=== PATIENT | male | born 1970 | race Caucasian/White ===

== ENCOUNTER 2018-06-04 07:29 | Outpatient (CLI) | payer OTHER ==
--- NOTE | 2018-06-04 10:39 | CT ---
CT ABDOMEN AND PELVIS WITH CONTRAST: Date: 06/04/18 HISTORY: Right upper quadrant pain. COMPARISON: None. FINDINGS: Lung bases are clear. No pericardial effusion. Prior cholecystectomy. Adrenal glands are unremarkable. Spleen and pancreas are unremarkable. Aortic contour is normal. No aneurysmal dilatation. No adenopathy. There is mild circumferential thickening of the ascending colon, best seen on coronal image 55, which does appear to have some focal fatty infiltration within the wall. Low grade diverticular disease si gmoid colon without active current inflammation. The pancreas, spleen, and liver are unremarkable. No abnormal renal enhancing mass. There are two pun ctate 2-3 mm calculi interpolar right renal collecting system. IMPRESSION: 1. Mild circumferential wall thickening of the ascending colon, which does appear to have some focal fatty infiltration. Recommend evaluation with colonoscopy as there is concern for malignancy. There is also submucosal fatty infiltration in the terminal ileum which may be sequelae of chronic inflamma tory bowel disease such as Crohn's. 2. No acute inflammatory process in the abdomen or pelvis. POS: VAL
== END 2018-06-04 07:30 | disposition home or self-care (01) ==
LOC: SCSCT 07:29
PROVIDERS: ATTEND Internal Medicine Gastroenterology
DX: R10.11 Right upper quadrant pain (principal); K63.89 Other specified diseases of intestine
CPT/HCPCS: 74177

== ENCOUNTER 2023-03-13 09:22 | Outpatient (CLI) | payer OTHER ==
[2023-03-13 10:06] LABS: #Basophils 0.1 10x3/uL (0.0-0.2); #Eosinphils 0.1 10x3/uL (0.0-0.5); #Monocytes 0.6 10x3/uL (0.0-1.1); #Neutrophils 4.2 10x3/uL (1.5-8.4); %Basophils 0.8 % (0.0-2.0); %Eosinophils 1.8 % (0.0-6.0); %Lymphocytes 20.9 % (18.0-47.0); %Monocytes 9.1 % (0.0-10.0); %Neutrophils 67.1 % (40.0-75.0); Hematocrit 42.5 % (38.8-50.0); Hemoglobin 14.3 g/dL (13.5-17.5); Mean Corpuscular HGB CONC 33.6 g/dL (32.0-36.0); Mean Corpuscular Hemoglobin 29.1 pg (27.0-33.0); Mean Corpuscular Volume 86.6 fl (81.2-95.1); Mean Platelet Volume 9.6 fl (7.4-10.4); Platelet Count 261 10x3/uL (150-450); RBC Distribution Width 12.6 % (11.5-14.5); Red Blood Cell (RBC) Count 4.91 10x6/uL (4.32-5.72); White Blood Cell (WBC) Count 6.3 10x3/uL (3.5-10.5)
[2023-03-13 10:33] LABS: Anion Gap 15 mmol/L (10-20); BUN (Urea Nitrogen) 19 mg/dL (8.4-25.7); Calc. Creatinine Clearance 0 mL/min (70-130); Calcium 9.4 mg/dL (7.8-10.44); Carbon Dioxide 25 mmol/L (22-29); Chloride 105 mmol/L (98-107); Estimated GFR 92; Glucose 119 mg/dL (70-105); Potassium 4.5 mmol/L (3.5-5.1); Sodium 140 mmol/L (136-145)
== END 2023-03-13 09:23 | disposition home or self-care (01) ==
LOC: LABBT 09:22
PROVIDERS: ATTEND Orthopaedic Surgery
DX: Z01.818 Encounter for other preprocedural examination (principal); M19.011 Primary osteoarthritis, right shoulder
CPT/HCPCS: 80048; 85025; 93005; 93010

== ENCOUNTER 2023-05-21 08:58 | Outpatient (CLI) | payer OTHER ==
[2023-05-21 09:47] LABS: #Eosinphils 0.1 10x3/uL (0.0-0.5); #Monocytes 0.5 10x3/uL (0.0-1.1); #Neutrophils 4.3 10x3/uL (1.5-8.4); %Basophils 0.6 % (0.0-2.0); %Eosinophils 1.6 % (0.0-6.0); %Lymphocytes 18.8 % (18.0-47.0); %Monocytes 8.6 % (0.0-10.0); %Neutrophils 69.9 % (40.0-75.0); Hematocrit 42.2 % (38.8-50.0); Hemoglobin 14.2 g/dL (13.5-17.5); Mean Corpuscular HGB CONC 33.6 g/dL (32.0-36.0); Mean Corpuscular Hemoglobin 28.3 pg (27.0-33.0); Mean Corpuscular Volume 84.1 fl (81.2-95.1); Mean Platelet Volume 9.7 fl (7.4-10.4); Platelet Count 262 10x3/uL (150-450); Red Blood Cell (RBC) Count 5.02 10x6/uL (4.32-5.72); White Blood Cell (WBC) Count 6.2 10x3/uL (3.5-10.5)
[2023-05-21 10:28] LABS: Anion Gap 13 mmol/L (10-20); BUN (Urea Nitrogen) 16 mg/dL (8.4-25.7); Calc. Creatinine Clearance 0 mL/min (70-130); Calcium 9.6 mg/dL (7.8-10.44); Carbon Dioxide 27 mmol/L (22-29); Chloride 106 mmol/L (98-107); Estimated GFR 88; Glucose 147 mg/dL (70-105); Potassium 4.2 mmol/L (3.5-5.1); Sodium 142 mmol/L (136-145)
== END 2023-05-21 08:59 | disposition home or self-care (01) ==
LOC: LABBT 08:58
PROVIDERS: ATTEND Orthopaedic Surgery
DX: Z01.818 Encounter for other preprocedural examination (principal); M19.011 Primary osteoarthritis, right shoulder
CPT/HCPCS: 80048; 85025; 87081; 93005; 93010

== ENCOUNTER 2023-05-23 06:56 | Observation (INO) | payer OTHER ==
[2023-05-21 09:22] VITALS: BMI 32.3
[2023-05-23] MEDS ORDERED: Scopolamine 1 mg/72 hour Patch ONE (07:53)
[2023-05-23] MEDS ORDERED: Vancomycin (BATCH) 1.5 GM/300 ML BAG ONE (07:53)
[2023-05-23] MEDS ORDERED: Tranexamic Acid 1,000 MG/10 ML VIAL ONE (07:55)
[2023-05-23] MEDS ORDERED: Sodium Chloride 0.9% 100 ML ONE ×2 (07:56→09:11)
[2023-05-23] MEDS ORDERED: fentaNYL 50 mcg/mL 1 mL Vial ONE ×4 (08:05→14:55)
[2023-05-23] MEDS ORDERED: Lidocaine 1% (PF) 30 ML VIAL ONE (08:06)
[2023-05-23] MEDS ORDERED: Midazolam HCl 2 mg/2 ml Vial ONE ×2 (08:06→13:53)
[2023-05-23] MEDS ORDERED: Promethazine HCl 25 MG/ML VIAL IM PRN (09:00)
[2023-05-23] MEDS ORDERED: Ondansetron PF 4 MG/2 ML Vial IVP PRN (09:00)
[2023-05-23] MEDS ORDERED: HYDROcodone/Acetaminophen 10/325 mg Tablet PO PRN (09:00)
[2023-05-23] MEDS ORDERED: Zolpidem Tartrate 5 MG TAB PO PRN (09:00)
[2023-05-23] MEDS ORDERED: traMADol HCl 50 MG TAB PO PRN ×2 (09:00)
[2023-05-23] MEDS ORDERED: Ropivacaine 0.2% 550 ML 550 ML NERVE BLCK SCH (09:00)
[2023-05-23] MEDS ORDERED: fentaNYL 50 mcg/mL 1 mL Vial SLOW IVP PRN (09:03)
[2023-05-23] MEDS ORDERED: CEFAZOLIN 2 GM VIAL ONE (09:11)
[2023-05-23] MEDS ORDERED: PHENYLEPHRINE-NS 100 MCG/ML 10 ML SYRINGE ONE (09:14)
[2023-05-23] MEDS ORDERED: Rocuronium Bromide 10 MG/ML (10ML VIAL) ONE ×2 (09:14→10:15)
[2023-05-23] MEDS ORDERED: Ondansetron PF 4 MG/2 ML Vial ONE ×2 (09:14→10:15)
[2023-05-23] MEDS ORDERED: fentaNYL PF 100 MCG/2 ML SYRINGE ONE ×2 (09:14→13:26)
[2023-05-23] MEDS ORDERED: Lidocaine 1% PF 5 ML VIAL ONE ×2 (09:14→10:15)
[2023-05-23] MEDS ORDERED: Dexamethasone 20 MG/5 ML VIAL ONE ×2 (09:14→10:15)
[2023-05-23] MEDS ORDERED: PROPOFOL 20 ML ONE ×2 (09:14→12:24)
[2023-05-23] MEDS ORDERED: PROPOFOL 200 MG/20 ML VIAL ONE (10:15)
[2023-05-23] MEDS ORDERED: Bupivacaine HCl 0.5%/Epinephrine 1:200,000/PF 30 ml Vial ONE (10:15)
[2023-05-23] MEDS ORDERED: Ketorolac Tromethamine 30 MG/ML VIAL ONE ×2 (10:15→12:50)
[2023-05-23] MEDS ORDERED: SUGAMMADEX SODIUM 200 MG/2 ML VIAL ONE (12:26)
[2023-05-23] MEDS ORDERED: Milk Of Magnesia 30 ML UDCUP PO PRN (13:21)
[2023-05-23] MEDS ORDERED: Ondansetron ODT 4 MG TAB PO PRN (13:21)
[2023-05-23] MEDS ORDERED: Acetaminophen 325 MG TAB PO PRN (13:21)
[2023-05-23] MEDS ORDERED: Bisacodyl 10 MG SUPP PR PRN (13:21)
[2023-05-23] MEDS ORDERED: diphenhydrAMINE 50 MG CAP PO PRN (13:21)
[2023-05-23] MEDS: Ketorolac Tromethamine 30 MG/ML VIAL IVP SCH ×2 (16:06→17:48)
[2023-05-23] MEDS: Dextrose 5 %-0.45 % NaCl 1,000 ML IV SCH (16:36)
[2023-05-23] MEDS: CEFAZOLIN 2 GM in Sodium Chloride 0.9% 100 ML IVPB SCH (17:47)
[2023-05-23] MEDS: HYDROcodone/Acetaminophen 10/325 mg Tablet PO PRN (20:27)
[2023-05-24] MEDS: Ketorolac Tromethamine 30 MG/ML VIAL IVP SCH ×3 (01:00→12:09)
[2023-05-24] MEDS: CEFAZOLIN 2 GM in Sodium Chloride 0.9% 100 ML IVPB SCH (01:03)
[2023-05-24] MEDS: Dextrose 5 %-0.45 % NaCl 1,000 ML IV SCH (05:25)
[2023-05-24] MEDS: HYDROcodone/Acetaminophen 10/325 mg Tablet PO PRN (12:10)
[2023-05-24 12:39] VITALS: BP 153/83; TEMP 98.7
== END 2023-05-24 12:40 | disposition home or self-care (01) ==
LOC: SDC 06:56 → SJJU 16:33
PROVIDERS: ADMIT Orthopaedic Surgery; ATTEND Orthopaedic Surgery
PROC: 0RRJ0JZ Replacement of Right Shoulder Joint with Synthetic Substitute, Open Approach (ICD-10-PCS; principal; 2023-05-24)
PROC: 0LS30ZZ Reposition Right Upper Arm Tendon, Open Approach (ICD-10-PCS; 2023-05-24)
DX: M19.011 Primary osteoarthritis, right shoulder (principal); M75.22 Bicipital tendinitis, left shoulder; M19.012 Primary osteoarthritis, left shoulder; E78.5 Hyperlipidemia, unspecified; G43.909 Migraine, unspecified, not intractable, without status migrainosus; F43.10 Post-traumatic stress disorder, unspecified; E66.3 Overweight; J45.909 Unspecified asthma, uncomplicated; Z90.89 Acquired absence of other organs; Z98.890 Other specified postprocedural states; Z79.899 Other long term (current) drug therapy
CPT/HCPCS: A4306; C1713; C1776; J1100; J1885; J2001; J2250; J2405; J2704; J2795; J3010; J3370; J3490; J7042

== ENCOUNTER 2023-09-03 08:00 | Outpatient (CLI) | payer OTHER | END 2023-09-03 08:01 | disposition home or self-care (01) | LOC: ULT 08:00 | PROVIDERS: ATTEND Family Medicine | DX: K76.0 Fatty (change of) liver, not elsewhere classified (principal) | CPT/HCPCS: 76705 ==

== ENCOUNTER 2023-11-28 11:33 | Outpatient (CLI) | payer OTHER ==
[2023-11-28 13:27] LABS: Bilirubin Neg (Negative); Blood, Urine Negative (Negative); Clarity Clear (Clear); Glucose, Urine (Dipstick) Normal (Negative); Ketone, Urine Negative (Negative); Leukocyte Negative (Negative); Nitrite Negative (Negative); Protein, Urine (Dipstick) Negative (Neg-Trace); Urobilinogen Normal mg/dL (Less than 2)
[2023-11-28 13:30] LABS: Hematocrit 37.5 % (38.8-50.0); Hemoglobin 12.9 g/dL (13.5-17.5); Mean Corpuscular HGB CONC 34.4 g/dL (32.0-36.0); Mean Corpuscular Hemoglobin 29.1 pg (27.0-33.0); Mean Corpuscular Volume 84.7 fl (81.2-95.1); Mean Platelet Volume 10.4 fl (7.4-10.4); Platelet Count 261 10x3/uL (150-450); RBC Distribution Width 13.3 % (11.5-14.5); Red Blood Cell (RBC) Count 4.43 10x6/uL (4.32-5.72); White Blood Cell (WBC) Count 5.9 10x3/uL (3.5-10.5)
[2023-11-28 13:36] LABS: Anion Gap 13 mmol/L (10-20); BUN (Urea Nitrogen) 11 mg/dL (8.4-25.7); Calc. Creatinine Clearance 0 mL/min (70-130); Calcium 9.4 mg/dL (7.8-10.44); Carbon Dioxide 26 mmol/L (22-29); Chloride 104 mmol/L (98-107); Estimated GFR 104; Glucose 77 mg/dL (70-105); PTT 26.9 sec (22.0-33.0); Potassium 4.1 mmol/L (3.5-5.1); Prothrombin Time 10.5 sec (9.5-12.1); Sodium 139 mmol/L (136-145)
[2023-11-28 13:41] LABS: Bacteria/HPF None Seen HPF (None Seen); RBC/HPF None Seen HPF (0-3); Squamous Epithelial 0-3 HPF (0-3); WBC/HPF None Seen HPF (0-3)
== END 2023-11-28 11:34 | disposition home or self-care (01) ==
LOC: LABBT 11:33
PROVIDERS: ATTEND Urology
DX: Z01.818 Encounter for other preprocedural examination (principal); N20.0 Calculus of kidney
CPT/HCPCS: 80048; 81001; 85027; 85610; 85730; 87086; 93005; 93010

== ENCOUNTER 2023-12-06 11:24 | Observation (INO) | payer OTHER ==
[2023-12-06] MEDS ORDERED: fentaNYL PF 100 MCG/2 ML SYRINGE ONE ×3 (14:32→17:26)
[2023-12-06] MEDS ORDERED: Lidocaine 2% PF 5 ML VIAL ONE (14:32)
[2023-12-06] MEDS ORDERED: Scopolamine 1 mg/72 hour Patch ONE (15:36)
[2023-12-06] MEDS ORDERED: Iopamidol 30 ML ONE (15:38)
[2023-12-06] MEDS ORDERED: Ketamine In 0.9 % NaCl 50 MG/5 ML SYRINGE ONE (15:45)
[2023-12-06] MEDS ORDERED: Midazolam HCl 2 mg/2 ml Vial ONE (15:46)
[2023-12-06] MEDS ORDERED: LevoFLOXacin D5W 500 mg (100 mL) BAG ONE (15:54)
[2023-12-06] MEDS ORDERED: PROPOFOL 20 ML ONE (16:20)
[2023-12-06] MEDS ORDERED: PROPOFOL 200 MG/20 ML VIAL ONE (16:22)
[2023-12-06] MEDS ORDERED: Dexamethasone 20 MG/5 ML VIAL ONE (16:34)
[2023-12-06] MEDS ORDERED: Ondansetron PF 4 MG/2 ML Vial ONE (16:34)
[2023-12-06] MEDS ORDERED: Phenazopyridine HCl 100 MG TAB ONE (16:59)
[2023-12-06] MEDS ORDERED: Oxybutynin 5 MG TAB ONE (17:00)
[2023-12-06] MEDS ORDERED: Meperidine HCl/PF 25 MG (1 mL) VIAL ONE (17:02)
[2023-12-06] MEDS ORDERED: HYDROmorphone 0.5 MG/0.5 ML SYRINGE ONE ×3 (17:12→17:50)
[2023-12-06] MEDS ORDERED: Ketorolac Tromethamine 30 MG (1 mL) VIAL ONE ×2 (17:43→17:44)
[2023-12-06] MEDS ORDERED: fentaNYL 50 mcg/mL 1 mL Vial ONE (18:10)
[2023-12-06] MEDS ORDERED: HYDROcodone/Acetaminophen 5/325 mg Tablet ONE (18:11)
[2023-12-06] MEDS ORDERED: Oxybutynin 5 MG TAB PO PRN (19:09)
[2023-12-06] MEDS ORDERED: Hyoscyamine SL 0.125 MG TAB SL PRN (19:09)
[2023-12-06] MEDS ORDERED: Morphine 2 MG/ML VIAL SLOW IVP PRN (19:09)
[2023-12-06] MEDS ORDERED: Ketorolac Tromethamine 30 MG (1 mL) VIAL IVP PRN (19:09)
[2023-12-06] MEDS ORDERED: Mag-Al 1200 mg/1200 mg/30 ML UDCUP PO PRN (19:09)
[2023-12-06] MEDS ORDERED: Bisacodyl 10 MG SUPP PR PRN (19:09)
[2023-12-06] MEDS ORDERED: Ondansetron PF 4 MG/2 ML Vial IVP PRN (19:09)
[2023-12-06] MEDS ORDERED: hydrALAZINE 20 MG/ML VIAL SLOW IVP PRN (19:09)
[2023-12-06] MEDS ORDERED: diphenhydrAMINE 25 MG CAP PO PRN (19:09)
[2023-12-06] MEDS ORDERED: Albuterol 200 PUFF (6.7GM INHALER) INH PRN (19:11)
[2023-12-06] MEDS ORDERED: tiZANidine HCl 4 MG TAB PO PRN (19:24)
[2023-12-06 19:47] VITALS: BMI 33.2
[2023-12-06] MEDS: Rosuvastatin 20 MG TAB PO SCH (19:58)
[2023-12-06] MEDS: Docusate 100 MG CAP PO SCH (19:58)
[2023-12-06] MEDS: Morphine 4 MG/ML VIAL SLOW IVP PRN (19:58)
[2023-12-06] MEDS: DULoxetine 20 MG CAP PO SCH (19:59)
[2023-12-06] MEDS ORDERED: traMADol HCl 50 MG TAB PO PRN (20:47)
[2023-12-06] MEDS: HYDROcodone/Acetaminophen 5/325 mg Tablet PO PRN (22:10)
[2023-12-07] MEDS: Loratadine 10 MG TAB PO SCH (08:08)
[2023-12-07] MEDS: Tamsulosin HCl 0.4 MG CAP PO SCH (08:08)
[2023-12-07] MEDS: Pantoprazole DR 40 MG TAB PO SCH (08:09)
[2023-12-07] MEDS: CeleCOXIB 100 MG CAP PO SCH (08:09)
[2023-12-07 11:43] VITALS: BP 96/58; TEMP 98.2
[2023-12-07] MEDS: HYDROcodone/Acetaminophen 5/325 mg Tablet PO PRN (11:59)
== END 2023-12-07 12:17 | disposition home or self-care (01) ==
LOC: SDC 11:24 → SURG A 18:32
PROVIDERS: ADMIT Urology; ATTEND Urology
PROC: 0TF38ZZ Fragmentation in Right Kidney Pelvis, Via Natural or Artificial Opening Endoscopic (ICD-10-PCS; principal; 2023-12-07)
PROC: 3E0K8GC Introduction of Other Therapeutic Substance into Genitourinary Tract, Via Natural or Artificial Opening Endoscopic (ICD-10-PCS; 2023-12-07)
DX: N20.0 Calculus of kidney (principal); E78.5 Hyperlipidemia, unspecified; G43.909 Migraine, unspecified, not intractable, without status migrainosus; E66.3 Overweight; J45.909 Unspecified asthma, uncomplicated; M19.90 Unspecified osteoarthritis, unspecified site; Z91.041 Radiographic dye allergy status; Z88.4 Allergy status to anesthetic agent
CPT/HCPCS: 82365; 88300; C1713; C1747; C1769; C2617; J1100; J1170; J1885; J1956; J2001; J2175; J2250; J2270; J2405; J2704; J3010; J3490; Q9967